=== PATIENT | female | born 2000 | race Caucasian/White ===

== ENCOUNTER 2021-05-20 14:02 | Emergency (ER) | payer MEDICAID ==
[~2021-05-20] VITALS: Ht 160 cm; Wt 54.0 kg
[2021-05-20] MEDS ORDERED: HYDROCODONE/ACETAMINOPHEN 5/325MG TABLET PO ONE (14:45)
[2021-05-20] MEDS ORDERED: KETOROLAC 60MG/2ML VIAL IM ONE (14:45)
[2021-05-20 14:55] VITALS: BP 117/73
[2021-05-20] MEDS ORDERED: CYCL10TA7 MT (17:39)
[2021-05-20] MEDS ORDERED: IBUP-2029 MT (17:39)
== END 2021-05-20 17:59 | disposition home or self-care (01) ==
LOC: ER 14:02
DX: S10.81XA Abrasion of other specified part of neck, initial encounter (principal); S60.312A Abrasion of left thumb, initial encounter; M54.89 Other dorsalgia; V43.52XA Car driver injured in collision with other type car in traffic accident, initial encounter; Y93.89 Activity, other specified; Y92.488 Other paved roadways as the place of occurrence of the external cause
CPT/HCPCS: 71101; 72040; 73000; 73140; 81025; 96372; 99284; J1885